=== PATIENT | female | born 1960 | race Caucasian/White ===

== ENCOUNTER 2025-04-05 20:44 | Inpatient (IN) | payer OTHER, MEDICARE ==
[~2025-04-05] VITALS: Ht 160 cm; Wt 49.6 kg
[~2025-04-05 20:44] MED LIST: VIVELLE-DO0.05 MG/24 TD
[2025-04-05 20:47] VITALS: BP 113/59
[2025-04-05] MEDS ORDERED: SODIUM CHLORIDE 0.9% 1,000 ML IV ONE (22:20)
[2025-04-05] MEDS ORDERED: Ondansetron Hydrochloride 4 MG/2 ML VIAL IV ONE (22:20)
[2025-04-05] MEDS ORDERED: AMLODIPINE BESYL5 MG PO (22:47)
[2025-04-05] MEDS ORDERED: LIALDA1.2 GM PO (22:48)
[2025-04-05] MEDS ORDERED: SOVUNA200 MG PO (22:49)
[2025-04-05] MEDS ORDERED: FOSAMAX70 M1 PO (22:50)
[2025-04-05] MEDS ORDERED: DULOXETINE HCL30 MG PO (22:50)
[2025-04-05 23:27] LABS: BASO # 0.1 10*3/uL (0.0-0.1); BASO % 0.4 % (0.0-1.0); EOS # 0.1 10*3/uL (0.0-0.4); EOS % 0.6 % (1.0-4.0); MEAN CELL VOLUME 94.5 fl (81.0-99.0); MEAN CORPUSCULAR HGB 31.9 pg (27.0-31.0); MEAN PLATELET VOLUME 9.8 fl (9.6-12.3); MONO # 0.9 10*3/uL (0.1-1.0); MONO % 5.4 % (3.0-9.0); NEUT # 13.8 10*3/uL (2.3-7.9); NEUT % 84.1 % (47.0-73.0); NUCLEATED RED BLOOD CELL 0.0 % (0.0-0.0); NUCLEATED RED BLOOD CELL 0.0 10*3/uL (0.0-0.0); PLATELET COUNT AUTOMATED 263 10*3/uL (130-400); RED CELL DISTRI WIDTH 12.5 % (0-14.5)
[2025-04-05] MEDS ORDERED: diazePAM 10 MG/2 ML SYR IV ONE (23:40)
[2025-04-05 23:44] LABS: BUN 10 mg/dl (9-23); SGPT/ALT 23 U/L (5-49)
[2025-04-05 23:52] LABS: ACT PARTIAL THROMBO TIME 25.0 SECONDS (20.0-32.1)
[2025-04-06] VITALS (11 sets, daily range): BP systolic 121–144; BP diastolic 67–77
[2025-04-06 00:30] LABS: BILIRUBIN Negative (Negative); BLOOD Negative (Negative); CLARITY Clear (Clear); COLOR Yellow (Yellow); KETONE Negative (Negative); LEUKO ESTERASE Negative (Negative); NITRITE Negative (Negative); PH 7.5 (4.5-8.0); SPECIFIC GRAVITY 1.010 (1.001-1.030); UROBILINOGEN 0.2 E.U./dl (0.0-1.0)
[2025-04-06 00:41] LABS: BACTERIA TRACE; RBC 0-2 rbc/hpf (0-2); WBC 0-2 wbc/hpf (0-5)
[2025-04-06] MEDS ORDERED: TEMAZEPAM 15 MG CAP PO PRN (00:50)
[2025-04-06] MEDS ORDERED: Ondansetron Hydrochloride 4 MG/2 ML VIAL IV PRN (00:50)
[2025-04-06] MEDS ORDERED: Acetaminophen/Hydrocodone 5 MG/325 MG TABLET PO PRN (00:50)
[2025-04-06] MEDS ORDERED: ACETAMINOPHEN 325 MG TAB PO PRN (00:50)
[2025-04-06] MEDS ORDERED: SODIUM CHLORIDE 0.9% 1,000 ML IV ONE ×2 (01:00→11:15)
[2025-04-06] MEDS ORDERED: ceFAZolin sodium/sodium chlor 20 ML IV ONE ×2 (08:18→09:00)
[2025-04-06] MEDS ORDERED: TRANEXAMIC ACID IN NACL,ISO-OS 100 ML IV ONE ×2 (08:18→09:00)
[2025-04-06] MEDS ORDERED: Lactated Ringer's Solution 1,000 ML IV ONE (08:19)
[2025-04-06] MEDS ORDERED: ALENDRONATE SODIUM 70 MG TAB PO SCH (10:00)
[2025-04-06] MEDS ORDERED: Cholecalciferol 2,000 UNIT TABLET (50 MCG) PO SCH (10:00)
[2025-04-06] MEDS ORDERED: Dexamethasone Sodium Phospha 4 MG/ML VIAL IV ONE (12:06)
[2025-04-06] MEDS ORDERED: SEVOFLURANE 250 ML BOT INH ONE (12:06)
[2025-04-06] MEDS ORDERED: Ketamine Hydrochloride 500 MG/10 ML VIAL IV ONE (12:06)
[2025-04-06] MEDS ORDERED: Midazolam Hydrochloride 2 MG/2 ML VIAL IV ONE (12:06)
[2025-04-06] MEDS ORDERED: Ondansetron Hydrochloride 4 MG/2 ML VIAL IV ONE (12:06)
[2025-04-06] MEDS ORDERED: ROCURONIUM BROMIDE 50 MG/5 ML SYRINGE IV ONE (12:06)
[2025-04-06] MEDS ORDERED: Lidocaine Hydrochloride 2% 5 ML SDV IM ONE (12:06)
[2025-04-06] MEDS ORDERED: SUGAMMADEX SODIUM 200 MG/2 ML VIAL IV ONE (12:06)
[2025-04-06] MEDS ORDERED: PROPOFOL 200 MG/20 ML VIAL IV ONE (12:06)
[2025-04-06] MEDS ORDERED: HYDROmorphONE Hydrochloride 0.5 MG/0.5 ML SYRINGE IV ONE (12:50)
[2025-04-06] MEDS ORDERED: ceFAZolin sodium 1 GM in SYRINGE INFUSION 10 ML IV SCH (16:00)
[2025-04-06] MEDS ORDERED: ASPIRIN ENTERIC COATED 81 MG TAB PO SCH (18:00)
[2025-04-07] VITALS: BP 139/66
[2025-04-07 06:25] LABS: BASO # 0.0 10*3/uL (0.0-0.1); BASO % 0.4 % (0.0-1.0); EOS # 0.1 10*3/uL (0.0-0.4); EOS % 1.2 % (1.0-4.0); MEAN CELL VOLUME 94.4 fl (81.0-99.0); MEAN CORPUSCULAR HGB 31.8 pg (27.0-31.0); MEAN PLATELET VOLUME 10.4 fl (9.6-12.3); MONO # 1.1 10*3/uL (0.1-1.0); MONO % 10.3 % (3.0-9.0); NEUT # 6.7 10*3/uL (2.3-7.9); NEUT % 64.2 % (47.0-73.0); NUCLEATED RED BLOOD CELL 0.0 % (0.0-0.0); NUCLEATED RED BLOOD CELL 0.0 10*3/uL (0.0-0.0); PLATELET COUNT AUTOMATED 228 10*3/uL (130-400); RED CELL DISTRI WIDTH 12.5 % (0-14.5)
[2025-04-07 07:24] LABS: BUN 7 mg/dl (9-23); FREE T4 1.75 ng/dl (0.89-1.76); LDL CHOLESTEROL 66 mg/dL (9-159); SGPT/ALT 15 U/L (5-49)
[2025-04-07 08:00] VITALS: BP 131/82
[2025-04-07] MEDS ORDERED: Acetaminophen/Oxycodone Hydr 7.5 MG/325 MG TABLET PO PRN (11:10)
[2025-04-07 11:55] VITALS: BP 116/66
[2025-04-07 16:00] VITALS: BP 127/63
[2025-04-07 20:00] VITALS: BP 136/72
[2025-04-08] VITALS: BP 145/73
[2025-04-08 06:28] LABS: BASO # 0.1 10*3/uL (0.0-0.1); BASO % 0.6 % (0.0-1.0); EOS # 0.4 10*3/uL (0.0-0.4); EOS % 4.2 % (1.0-4.0); MEAN CELL VOLUME 96.6 fl (81.0-99.0); MEAN CORPUSCULAR HGB 31.9 pg (27.0-31.0); MEAN PLATELET VOLUME 10.1 fl (9.6-12.3); MONO # 0.8 10*3/uL (0.1-1.0); MONO % 9.4 % (3.0-9.0); NEUT # 5.4 10*3/uL (2.3-7.9); NEUT % 61.9 % (47.0-73.0); NUCLEATED RED BLOOD CELL 0.0 % (0.0-0.0); NUCLEATED RED BLOOD CELL 0.0 10*3/uL (0.0-0.0); PLATELET COUNT AUTOMATED 226 10*3/uL (130-400); RED CELL DISTRI WIDTH 12.4 % (0-14.5)
[2025-04-08 08:00] VITALS: BP 135/75
[2025-04-08 12:00] VITALS: BP 124/69
[2025-04-08] MEDS ORDERED: DOCUSATE SODIUM 100 MG CAP PO PRN (13:55)
[2025-04-08 16:00] VITALS: BP 125/72
[2025-04-08 20:00] VITALS: BP 119/66
[2025-04-09] VITALS: BP 136/55
[2025-04-09 06:03] LABS: BASO # 0.1 10*3/uL (0.0-0.1); BASO % 0.6 % (0.0-1.0); EOS # 0.5 10*3/uL (0.0-0.4); EOS % 5.8 % (1.0-4.0); MEAN CORPUSCULAR HGB 31.3 pg (27.0-31.0); MEAN PLATELET VOLUME 10.3 fl (9.6-12.3); MONO # 0.8 10*3/uL (0.1-1.0); MONO % 10.5 % (3.0-9.0); NEUT # 4.3 10*3/uL (2.3-7.9); NEUT % 54.0 % (47.0-73.0); NUCLEATED RED BLOOD CELL 0.0 % (0.0-0.0); NUCLEATED RED BLOOD CELL 0.0 10*3/uL (0.0-0.0); PLATELET COUNT AUTOMATED 251 10*3/uL (130-400); RED CELL DISTRI WIDTH 12.4 % (0-14.5)
[2025-04-09 06:44] LABS: MEAN CELL VOLUME 93.5 fl (81.0-99.0)
[2025-04-09 08:00] VITALS: BP 124/63
[2025-04-09 12:00] VITALS: BP 121/70
[2025-04-09] MEDS ORDERED: VITAMIN D350 MCG PO (12:57)
[2025-04-09] MEDS ORDERED: OXYCODONE HCL5 MG PO (12:57)
[2025-04-09] MEDS ORDERED: ASPIRIN ADULT L81 M2 PO (12:57)
== END 2025-04-09 19:15 | DRG 481 ==
LOC: ED 20:44 → 4E 04-06 00:27 → EDHOLD 04-06 00:27 → 4E 04-06 01:47
PROVIDERS: Nurse Practitioner Family; Orthopaedic Surgery; Student in an Organized Health Care Education/Training Program; ADMIT Student in an Organized Health Care Education/Training Program; ATTEND Student in an Organized Health Care Education/Training Program
PROC: 0QH634Z Insertion of Internal Fixation Device into Right Upper Femur, Percutaneous Approach (ICD-10-PCS; principal; 2025-04-06)
DX: S72.144A Nondisplaced intertrochanteric fracture of right femur, initial encounter for closed fracture (principal); K51.90 Ulcerative colitis, unspecified, without complications; M06.9 Rheumatoid arthritis, unspecified; M81.0 Age-related osteoporosis without current pathological fracture; I10 Essential (primary) hypertension; D72.828 Other elevated white blood cell count; S50.01XA Contusion of right elbow, initial encounter; F17.200 Nicotine dependence, unspecified, uncomplicated; R73.9 Hyperglycemia, unspecified; R74.01 Elevation of levels of liver transaminase levels; Z88.2 Allergy status to sulfonamides; Z88.7 Allergy status to serum and vaccine; Z90.710 Acquired absence of both cervix and uterus

== ENCOUNTER → 2025-04-21 | Outpatient (CLI) | payer OTHER, MEDICARE ==
[~2025-04-21] MED LIST changes: +AMLODIPINE BESYL5 MG PO; +ASPIRIN ADULT L81 M2 PO; +DULOXETINE HCL30 MG PO; +FOSAMAX70 M1 PO; +LIALDA1.2 GM PO; +OXYCODONE HCL5 MG PO; +SOVUNA200 MG PO; +VITAMIN D350 MCG PO
== END | disposition home or self-care (01) ==
LOC: ORTHO 02:54
PROVIDERS: ATTEND Orthopaedic Surgery
DX: S72.144D Nondisplaced intertrochanteric fracture of right femur, subsequent encounter for closed fracture with routine healing (principal); R60.0 Localized edema; M25.451 Effusion, right hip; X58.XXXD Exposure to other specified factors, subsequent encounter